=== PATIENT | male | born 1990 | race Caucasian/White ===

== ENCOUNTER 2022-06-21 07:26 | Emergency (ER) | payer SELFPAY ==
[2022-06-21] MEDS ORDERED: Lidocaine/EPINEPHrine/Tetracaine Soln 1 ML TOP ONE (08:57)
[2022-06-21] MEDS ORDERED: Lidocaine 1% with EPINEPHrine 1:100,000 10 ML MDV INJECT ONE (08:58)
== END 2022-06-21 11:26 | disposition home or self-care (01) ==
LOC: JD.ED 07:26
DX: L02.512 Cutaneous abscess of left hand (principal); M79.5 Residual foreign body in soft tissue; F17.210 Nicotine dependence, cigarettes, uncomplicated; Z79.899 Other long term (current) drug therapy
CPT/HCPCS: 10060; 99283

== ENCOUNTER 2022-08-15 08:12 | Emergency (ER) | payer SELFPAY | END 2022-08-15 08:27 | disposition left against medical advice (07) | LOC: JD.ED 08:12 | DX: Z53.21 Procedure and treatment not carried out due to patient leaving prior to being seen by health care provider (principal) ==